=== PATIENT | female | born 1950 | race Two or more races ===

== ENCOUNTER → 2018-04-05 | Outpatient (CLI) | payer OTHER ==
[~2018-04-05] MED LIST: IOHEXOL 300 MG/ML 75ml BOTTLE IJ ONE
[2018-04-05 10:27] LABS: BUN/Creatinine Ratio 23.6; Calcium 8.9 mg/dL (8.5-10.1); Potassium 4.9 mmol/L (3.5-5.1)
== END | disposition home or self-care (01) ==
LOC: CT 08:53
DX: K75.3 Granulomatous hepatitis, not elsewhere classified (principal); K76.0 Fatty (change of) liver, not elsewhere classified
CPT/HCPCS: 36415; 71260; 80048; Q9967